=== PATIENT | male | born 1955 | race Caucasian/White ===

== ENCOUNTER 2022-02-08 14:57 | Emergency (ER) | payer SELFPAY ==
[~2022-02-08] VITALS: Ht 167.6 cm; Wt 95.2 kg
[2022-02-08] MEDS ORDERED: HYDROCODON-ACE1 EA10 PO (18:58)
== END 2022-02-08 19:33 | disposition home or self-care (01) ==
LOC: ED 14:57
DX: S43.014A Anterior dislocation of right humerus, initial encounter (principal); S64.91XA Injury of unspecified nerve at wrist and hand level of right arm, initial encounter; I10 Essential (primary) hypertension; E11.9 Type 2 diabetes mellitus without complications; W19.XXXA Unspecified fall, initial encounter
CPT/HCPCS: 23650; 73030; 73060; 99283-25; A9270; J1885; J2704